=== PATIENT | male | born 1940 | race Caucasian/White ===

== ENCOUNTER → 2017-05-10 | Outpatient (CLI) | payer OTHER ==
--- NOTE | ~2017-05-10 | S ---
[facility] [place] [address] SURGICAL PATH RPT PROCEDURE Name: KARTIK LARRY Room #: REG [facility].#: [id number] Admission: 05/10/17 Date of : 38 Discharge: Report #: [id number] Path Case #: [id number] PATHOLOGY REPORT COLLECTION DATE: 05/10/2017 RECEIVED DATE: 05/11/2017 SUBMITTING PHYS: Dr. Jaison Mckay OTHER PHYS: Dr. Jaelyn Cornelius SPECIMEN(S) RECEIVED: A.Lt thyroid mass * * * * * * * * * * * * FINAL DIAGNOSIS: Thyroid, left thyroid mass, needle core biopsy: - Detached fragments of thyroid parenchyma showing macro follicles, focal chronic inflammation as well as abundant macrophages (please see comment). COMMENT: Findings are suggestive of a benign adenomatoid nodule. Nuclear features of papillary thyroid carcinoma are not present. Please note sample represents a minute portion of a larger lesion and may not be medical service representative. Clinical correlation is suggested. Please refer to the concurrent cytology report [id number]. (IUV:pit; 05/14/2017) PATHOLOGIST: Eliza Torres M.D. REPORT ELECTRONICALLY SIGNED BY: Eliza Torres M.D. DATE/TIME: 05/14/2017 16:08 * * * * * * * * * * * * GROSS PATHOLOGY: The specimen is received in formalin, labeled "Kartik Larry, left thyroid mass". Received are multiple fragments of pale crump soft tissue ranging in size from 0.1 cm to 0.2 cm. The specimen is filtered and entirely submitted in cassette A1. The smaller segments may not survive processing. (SNA; 05/11/2017) CLINICAL HISTORY: Left thyroid mass INITIAL CPT CODE(S): A; [address] [facility] [place] [address] SURGICAL PATH RPT PROCEDURE Name: KARTIK LARRY [id number] Admission: 05/10/17 Date of : 38 Discharge: Report #: [id number] Path Case #: [id number] Professional services performed by [facility] at [facility] [address] [place] [address] Technical services performed by [facility] at [address] [place] [address], [facility] [address] [address]. [facility] [address] [place] [address] PHONE: [phone] DIRECTOR: Gerald Olguin M.D. * * * END OF REPORT * * *
--- NOTE | ~2017-05-10 | CNG ---
[facility] [place] [address] CYTO-NONGYN REPORT PROCEDURE Name: KARTIK LARRY Room #: REG [facility]#: [id number] Admission: 05/10/17 Date of : 38 Discharge: Report #: [id number] Path Case #: [id number] CYTOPATHOLOGY REPORT COLLECTION DATE: 05/10/2017 RECEIVED DATE: 05/10/2017 SUBMITTING PHYS: Dr. Jaison Mckay OTHER PHYS: Dr. Jaelyn Cornelius CLINICAL HISTORY: Left thyroid mass. SPECIMEN(S) RECEIVED: A.Fine needle aspiration, Left thyroid mass * * * * * * * * * * * * FINAL DIAGNOSIS: Fine needle aspiration left thyroid mass: - [place] category: Benign -Thyroid follicular cells and colloid present. (see comment) COMMENT: There is abundant colloid admixed with thyroid follicular cells, some with Hurthle cell changes. Diagnostic features of papillary carcinoma are not seen. 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 However if the lesion is clinically and radiologically suspicious, the material aspirated may not be sales representative printing supplies. Suggest radiological and clinical correlation and follow-up as clinically indicated. (SHA:; 05/11/2017) PATHOLOGIST: Corey Menezes M.D. REPORT ELECTRONICALLY SIGNED BY: Corey Menezes M.D. DATE/TIME: 05/11/2017 13:57 * * * * * * * * * * * * GROSS PATHOLOGY: A. Fine needle aspiration, Left thyroid mass: The specimen is labeled "Kartik Larry" and consists of three fixed slides, three air dried slides. Thirty mL of clear colorless fluid in fixative from the needle rinse is also submitted and one ThinPrep slide and a cell block were prepared from this material. (clt 05.10.2017) Also received is the RNARetain vial which will be held for molecular studies if needed. TITLE CLERK(S): JUAN FRANCISCO Oleary([facility] INITIAL CPT CODE(S): [address] [address] CYTO-NONGYN REPORT PROCEDURE Name: KARTIK LARRY [id number] Admission: 05/10/17 Date of : 38 Discharge: Report #: [id number] Path Case #: [id number] A; [id number], [id number] Professional services performed by [facility] at [address] , [place] [address] [facility] at [address] [place] [address]., [address], [place] [address]. [address] [place] [address] PHONE: [phone] DIRECTOR: Gerald Olguin M.D. * * * END OF REPORT * * *
== END | disposition home or self-care (01) ==
LOC: ULTRA 08:28
DX: D34 Benign neoplasm of thyroid gland (principal)

== ENCOUNTER 2020-04-14 06:11 | Day surgery (SDC) | payer OTHER ==
[~2020-04-14] VITALS: Ht 162.6 cm; Wt 63.0 kg
[~2020-04-14 06:11] MED LIST: ASA81BEC PO; COQ-10100 MG PO; HYDROCHLOROTH12.5 M1 PO; LISINOPRIL40 MG PO; SUPER THERAVIT1 EACH PO; TOPROL XL25 MG PO; VITAMIN C + RO500 MG PO; ZOCOR40 MG PO
[2020-04-14 07:04] VITALS: BP 162/64
[2020-04-14 07:32] LABS: CREATININE 1.2 mg/dL (0.7-1.3); POTASSIUM 3.7 mmol/L (3.5-5.1)
[2020-04-14] MEDS ORDERED: NORCO 5-325 TA1 EAC1 PO (08:44)
[2020-04-14 10:10] VITALS: BP 162/64
--- NOTE | 2020-04-15 18:06 | PATH ---
[facility] [place] [address] PATHOLOGY RPT PROCEDURE Name: KARTIK LARRY Room #: DEP [facility] M.R.#: [id number] Admission: 04/14/20 Date of : 38 Discharge: 04/14/20 Report #: [id number] Path Case #: [id number] [facility] Accession Number: [id number] . 01 Material submitted: . inguinal area - RIGHT INGUINAL SKIN LESION. Modifiers: right . 01 Clinical history: . right recurrent inguinal hernia . 02 Diagnosis: Skin, right inguinal skin lesion, excision: - Mature keratinous cyst. - Completely excised. - Squamous epithelium showing reactive changes. . (IUV:mml; 04/15/2020) QL 04/15/2020 1329 Local . 02 Electronically signed: . Eliza Torres MD, Pathologist NPI- [id number] . 01 Gross description: . The specimen is received in formalin, labeled "Kartik Larry, right inguinal skin lesion" and consists of an unoriented elliptical segment of crump skin measuring 2.8 x 1.8 x 0.4 cm. The epidermal surface displays an ulcerated lesion measuring 0.4 x 0.2 cm which is 0.3 cm nearest peripheral margin. The margin is inked. Sectioning reveals a cystic cavity measuring up to 0.4 cm in diameter containing a soft white amorphous material. It is serially sectioned and entirely submitted in A1-A3. The tips are in A3. (ESME; 04/14/2020) JFQ/KARIN 04/14/2020 1804 Local . 02 Pathologist provided ICD-10: L72.0 . 02 CPT . 291786 Specimen Comment: A courtesy copy of this report has been sent to [phone], [phone] Specimen Comment: [phone] Specimen Comment: Report sent to / DR AMARAL Performed at: [address], [place] [id number] [place] [address] PATHOLOGY RPT PROCEDURE Name: KARTIK LARRY Room #: DEP [facility] Angel.Tony#: [id number] Admission: 04/14/20 Date of : 38 Discharge: 04/14/20 Report #: [id number] Path Case #: [id number] MD Silviano Landry MD Phone: [phone] Performed at: [address] [id number] MD Eliza Torres MD Phone: [phone]
--- NOTE | 2020-04-16 14:46 | O ---
[facility] [place] [address] OPERATIVE REPORT Name: LOTTIE LARRY Room #: DEP [facility] M..#: [id number] Admission: 04/14/20 Attend Phys: yRlan Lynne MD Discharge: 04/14/20 Date of : 38 Report #: [id number] THIS REPORT FOR: cc: Jaelyn Cornelius MD, Cora A. MD Franey,Rylan Redmond MD ~ CC: Jaelyn Lynne DATE OF SERVICE: 04/14/[address] Rylan Lynne, Dr. Jaelyn Cornelius. PREOPERATIVE DIAGNOSES: Recurrent right inguinal hernia and right inguinal 2 cm x 1 cm cystic mass of the skin. POSTOPERATIVE DIAGNOSES: Recurrent right inguinal hernia and right inguinal 2 cm x 1 cm cystic mass of the skin. PROCEDURE: Repair of a recurrent right inguinal hernia with Prolene hernia system mesh and excision of a 2 cm x 1 cm cystic mass of the skin. SURGEON: Rylan Lynne MD ANESTHESIA: Local IV sedation. DESCRIPTION OF PROCEDURE: The patient was brought to the operating room and placed on operative table in the supine position. Sequential compression devices were in place for DVT prophylaxis. There was no indication for preoperative antibiotics. The patient underwent IV sedation. The right inguinal area was prepped and draped in a sterile fashion. Skin and subcutaneous tissue were then infiltrated with 0.5% Marcaine and 1% Xylocaine in a 1:1 mixture. A right inguinal skin incision was then performed using #10 scalpel blade. Along with this incision, I performed excision of this 2 cm x 1 cm skin and subcutaneous cystic mass, which was then removed and sent as specimen to pathology. Dissection was then carried down through the subcutaneous tissue using the electrocautery. The external oblique fascia was then identified, injected with the local mixture, incised with a knife and opened with the Metzenbaum scissors. The cord was then dissected free, elevated up and held in place with [place] drain. Cremasteric muscle fibers were then split in the direction of fibers using clamp and electrocautery. There was no evidence of any indirect inguinal hernia sac. A direct inguinal hernia defect was identified. This hernia sac was dissected free and incised above the level of the floor and then reduced back through the floor. The preperitoneal space was then developed using blunt dissection. An extended Prolene hernia system [address] [address] OPERATIVE REPORT Name: LOTTIE LARRY Room #: DEP [facility] Angel.Tony#: [id number] Admission: 04/14/20 Attend Phys: Rylan Lynne MD Discharge: 04/14/20 Date of : 38 Report #: [id number] mesh was then inserted through the floor and then underlay patch was then deployed in the preperitoneal space. The floor was then closed and tightened around the connector using running 2-0 Prolene 2-layer Shouldice repair. The overlay patch was then deployed into the inguinal canal and secured to the pubic tubercle with the same running 2-0 Prolene suture. The mesh was then secured superiorly at the connector using simple interrupted 2-0 Vicryl sutures. The mesh was split and wrapped around the cord, secured to the inguinal ligament with simple interrupted 2-0 Vicryl suture. The cord was then returned to the canal intact. The external oblique fascia was then closed using running 2-0 Vicryl suture. Kamilla's fascia was then reapproximated using 3 simple interrupted 2-0 chromic sutures and the skin then closed with a running 4-0 subcuticular Vicryl stitch. The wound was then dressed with Mastisol, 1/2-inch Steri-Strips cut in half, Telfa, 4 x 4 gauze, sponge and tape. The patient was then awakened from the IV sedation, taken to recovery room awake, alert and in good condition. Estimated blood loss was approximately 5 mL and the patient tolerated procedure well. All sponge, lap and instrument counts correct x 2. <ELECTRONICALLY SIGNED> By: Rylan Lynne MD 04/16/20 1446 [id number] Rylan Lynne MD /nt
== END 2020-04-14 11:00 | disposition home or self-care (01) ==
LOC: OR 06:11 → TBA 06:12 → OR 08:36
PROVIDERS: ATTEND Surgery
DX: K40.91 Unilateral inguinal hernia, without obstruction or gangrene, recurrent (principal); L72.0 Epidermal cyst; I10 Essential (primary) hypertension; E78.00 Pure hypercholesterolemia, unspecified; E11.9 Type 2 diabetes mellitus without complications; Z90.49 Acquired absence of other specified parts of digestive tract; Z87.891 Personal history of nicotine dependence; Z98.890 Other specified postprocedural states; Z79.899 Other long term (current) drug therapy; Z85.51 Personal history of malignant neoplasm of bladder; Z88.0 Allergy status to penicillin; Z88.2 Allergy status to sulfonamides; Z11.59 Encounter for screening for other viral diseases
CPT/HCPCS: 50010; 50101; 50386; 50417; 54111; 56524; 56525; 56526; 56528; 62110; 62850; 70005